=== PATIENT | female | born 1970 | race Two or more races ===

== ENCOUNTER 2023-04-02 19:09 | Emergency (ER) | payer OTHER ==
[~2023-04-02] VITALS: Ht 160 cm; Wt 70.3 kg
[2023-04-02 21:17] LABS: HEMATOCRIT 38.8 % (36.0-45.00); HEMOGLOBIN 13.1 g/dL (12.0-15.00); MEAN CELL VOLUME 88.2 fL (80.00-100.00); MEAN CORPUSCULAR HEMOGLOBIN 29.7 pg (27.00-32.0); MEAN CORPUSCULAR HGB CONC 33.7 g/dl (32.0-36.0); PLATELET COUNT 273 K/uL (150-450); RED CELL DISTRIBUTION WIDTH 13.4 % (11.5-14.5)
[2023-04-02 21:43] LABS: CALCIUM 8.8 mg/dL (8.5-10.1); CREATININE SERUM 0.74 mg/dL (0.55-1.02); GFR 83.07; POTASSIUM 3.75 mEq/L (3.5-5.1)
== END 2023-04-02 22:25 | disposition home or self-care (01) ==
LOC: ER 19:09
PROVIDERS: General Practice
DX: R07.9 Chest pain, unspecified (principal)